=== PATIENT | female | born 1950 | race Caucasian/White ===

== ENCOUNTER 2020-04-22 11:30 | Outpatient (RCR) | payer MEDICARE, SELFPAY ==
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
--- NOTE | 2020-04-22 11:55 | HP.OTDCSUM ---
It has been my pleasure to treat MARIBEL ETIENNE under orders from Dr. Сергей De La Fuente MD, for the diagnosis of left hand crush injury for a total of 7 visit(s). Please see the following information for a summary of their discharge status. % Improvement: 95 Objective/Function: L Franchise Business Consultant 45#, up from 40#. L Lat pinch 18# , same as eval. L Tripod 11# , down from 12#. L Tip to Tip 5#. MCP IF 70*. MCP MF 85*. MCP RF 76. MCP LF 83*. pt MCP has increase in ROM and pt has gain a full composite fist and full finger ext. pt will cont with use of elastomer over her scar at night for the next 2 months. pt demo understanding. Patient Goals: Regain Mobility, Use Hand/Wrist/Arm Normally Again Goal:: pt will demo a increase in left hardening machine operator strength by 10# to increase pts ind with ADLs and IADls by d/c Goal:: pt will demo the ability to form a composite fist to manipulate coins ind. by d/c. pt will demo a increase in left MCP and PIP flex by 15* or greater to increase pts ind.with ADLs and IADLS by d/c Goal:: pt will demo understanding of scar mtg by end of 2nd session to limit scar adhesions Plan: D/C Discharge Comments: Pt was seen for 7 OT visits. pt made great gains with ROM and has returned the ability to form a composite fist. pt continues to struggle with sensation of tightness and with time this should subside. Pt will cont with light stretching and use of elastomer for her scar nightly for next 2 months. pt demo understanding of her HEP. pt d/c from OT pt agree with POC. If there are questions or concerns regarding this patient's occupational therapy, please fell free to call me at [phone]. Thank you for the referral of this patient. Sincerely, Citlali Bunch, OTR/L, CHT
== END 2020-04-22 12:18 | disposition home or self-care (01) ==
LOC: OT 11:30
PROVIDERS: Referring Provider Orthopaedic Surgery Hand Surgery; Visit Provider Orthopaedic Surgery Hand Surgery
DX: S67.22XD Crushing injury of left hand, subsequent encounter (principal)
CPT/HCPCS: 97110; 97140; 97165; 97530